=== PATIENT | male | born 1960 ===

== ENCOUNTER 2023-10-06 09:43 | Outpatient (CLI) | payer BC, SELFPAY ==
--- NOTE | ~2023-10-06 | MR_ITS ---
EXAMINATION: MR hip RT wo con DATE: 10/06/2023 10:41 INDICATION: Right hip pain. TECHNIQUE: Magnetic resonance imaging (MRI) of the right hip was performed without intravenous contra st. COMPARISON: None FINDINGS: Bones/cartilage: There is lumbar levocurvature and mild spondylosis. 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 There is less than 1 mm collapse of the artic ular surface of the right femoral head. There is deep partial thickness cartilage loss in the hip amelia nts, right worse than left. Labrum: There is a tear of the right acetabular labrum. Fluid: There is a large right hip joint effusion. Soft tissues: There is mild tendinopathy of the hamstring origins. The iliopsoas tendons are normal. The gluteus mi nimus and gluteus medius tendons are normal. The prostate is mildly enlarged. There is a left inguina l hernia containing fat. IMPRESSION: 1. 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 2. Moderate chondrosis of the hips. 3. Large right hip joint effusion. Reviewed, dictated and finalized at location A.
== END 2023-10-06 09:44 ==
PROVIDERS: PCP Orthopaedic Surgery; Visit Provider Orthopaedic Surgery
DX: M25.451 Effusion, right hip (principal); M87.851 Other osteonecrosis, right femur
CPT/HCPCS: 73721